=== PATIENT | female | born 2000 | race Two or more races ===

== ENCOUNTER 2022-06-12 16:56 | Emergency (ER) | payer SELFPAY ==
[~2022-06-12] VITALS: Ht 160 cm; Wt 60.0 kg
[2022-06-12 17:25] VITALS: BP 101/71
[2022-06-12 19:20] LABS: Hepatitis B Surface Antibody Negative (Negative)
[2022-06-12] MEDS ORDERED: TETANUS-DIPTH-ACEL PERTUSSIS 0.5ML SYR Tdap IM ONE (20:15)
[2022-06-12] MEDS ORDERED: EMTRTAB7 PO (21:32)
[2022-06-12] MEDS ORDERED: RALT400T PO (21:32)
== END 2022-06-12 21:37 | disposition home or self-care (01) ==
LOC: ER 16:56
DX: S61.001A Unspecified open wound of right thumb without damage to nail, initial encounter (principal); W27.3XXA Contact with needle (sewing), initial encounter; Y93.89 Activity, other specified; Y92.89 Other specified places as the place of occurrence of the external cause; Y99.8 Other external cause status
CPT/HCPCS: 36415; 86703; 86706; 86803; 87340; 90471; 90715

== ENCOUNTER 2022-09-06 08:16 | Emergency (ER) | payer MEDICAID, OTHER ==
[~2022-09-06] VITALS: Ht 165.1 cm; Wt 59.3 kg
[~2022-09-06 08:16] MED LIST: EMTRTAB7 PO; RALT400T PO
[2022-09-06 09:14] VITALS: BP 121/65
[2022-09-06] MEDS ORDERED: IBUP600T27 PO (10:02)
[2022-09-06] MEDS ORDERED: ONDA-144 PO (10:02)
== END 2022-09-06 10:08 | disposition home or self-care (01) ==
LOC: ER 08:16
DX: S16.1XXA Strain of muscle, fascia and tendon at neck level, initial encounter (principal); V43.52XA Car driver injured in collision with other type car in traffic accident, initial encounter; Y93.89 Activity, other specified; Y92.488 Other paved roadways as the place of occurrence of the external cause; Y99.8 Other external cause status
CPT/HCPCS: 72040